=== PATIENT | male | born 1945 | race Caucasian/White ===

== ENCOUNTER → 2016-11-29 | Outpatient (CLI) | payer BC ==
[~2016-11-29] MED LIST: CRESTOR20 MG PO; NEXIUM40 MG PO; ZETIA10 MG PO
[2016-11-29 11:51] LABS: BUN 25 mg/dL (7-18); GFR (ESTIMATED) 54 ML/MIN (>60)
== END ==
LOC: LAB 11:02
PROVIDERS: Internal Medicine Adolescent Medicine
DX: E78.5 Hyperlipidemia, unspecified (principal); E11.9 Type 2 diabetes mellitus without complications

== ENCOUNTER → 2017-03-08 | Outpatient (CLI) | payer BC | LOC: RT 13:13 | DX: G47.30 Sleep apnea, unspecified (principal); R06.83 Snoring ==